=== PATIENT | female | born 1975 | race Caucasian/White ===

== ENCOUNTER 2017-05-24 10:24 | Inpatient (IN) | payer OTHER ==
[2017-05-24] MEDS ORDERED: OLANZapine DISINTEGR 10 MG TAB PO ONE (11:07)
[2017-05-24] MEDS ORDERED: LORazepam 1 MG TAB PO ONE (11:14)
[2017-05-24 12:31] LABS: % IMMATURE GRANULYOCYTES 0.3 % (0.0-1.1); ABSOLUTE IMMATURE GRANULOCYTES 0.03 10^3/uL (0.00-0.10); ADD DIFF? NO; ADD MORPH? NO; ADD SCAN? NO; ATYPICAL LYMPHOCYTE FLAG 0 (0-99); FRAGMENT RBC FLAG 0 (0-99); HEMATOCRIT 45.8 % (38.0-47.0); HEMOGLOBIN 15.4 g/dL (12.6-16.3); LEFT SHIFT FLG 0 (0-99); LIPEMIA HEMOLYSIS FLAG 80 (0-99); MEAN CELL HEMOGLOBIN 32.4 pg (27.9-34.1); MEAN CELL HEMOGLOBIN CONCENTR. 33.6 g/dL (32.4-36.7); MEAN CELL VOLUME 96.2 fL (81.5-99.8); MEAN PLATELET VOLUME 10.2 fL (8.7-11.7); PLATELET CLUMPS FLAG 0 (0-99); PLATELET COUNT 337 10^3/uL (150-400); RED BLOOD CELL COUNT 4.76 10^6/uL (4.18-5.33)
[2017-05-24 12:49] LABS: CALCIUM 10.4 mg/dL (8.5-10.4); CARBON DIOXIDE 25 mEq/l (22-31); CHLORIDE 103 mEq/L (97-110); CREATININE 0.9 mg/dL (0.6-1.0); ETHANOL SERUM < 10 mg/dL (0-10); GLOMERULAR FILTRATION RATE > 60; GLUCOSE 90 mg/dL (70-100); SODIUM 139 mEq/L (134-144)
--- NOTE | 2017-05-24 13:09 | CPEKG ---
Heart Rate: 92 RR Interval: 652 P-R Interval: 128 QRSD Interval: 82 QT Interval: 356 QTC Interval: 441 P [place]: 53 QRS [place]: 8 T Wave [place]: 29 EKG Severity - NORMAL ECG - EKG Impression: SINUS RHYTHM Electronically Signed By: Rashi Crowell 24-May-2017 13:50:04
[2017-05-24 13:11] LABS: ANION GAP 11 mEq/L (8-16); POTASSIUM 4.9 mEq/L (3.5-5.2)
--- NOTE | 2017-05-24 13:19 | EDPHY ---
H & P Stated Complaint: Here for med clear for admit to BEH/ECT - Personal History Current Tetanus Diphtheria and Acellular Pertussis (TDAP): Yes - Medical/Surgical History Hx Asthma: No Hx Chronic Respiratory Disease: No Hx Diabetes: No Hx Cardiac Disease: No Hx Renal Disease: No Hx Cirrhosis: No Hx Alcoholism: No Hx HIV/AIDS: No Hx Splenectomy or Spleen Trauma: No Other PMH: PS, bipolar - Social History Smoking Status: Former smoker Time Seen by Provider: 05/24/17 10:45 HPI/ROS: Chief complaint: Medical clearance for inpatient psychiatric care History of present illness: This is a 41-year-old female with a history of bipolar who sent to the emergency department for medical clearance to get inpatient psychiatric care. Patient has had worsening symptoms of her bipolar. Her doctor wants to pursue inpatient treatment with ECT. My evaluation denies suicidal ideation. She denies homicidal ideation. She denies illness or injury. Review of systems: A 10 point review of systems was obtained and other than described above was negative (Herb Rain) - Physical Exam Exam: General Appearance: Alert, extremely upset and crying. Eyes: Pupils equal and round no pallor or injection. ENT, Mouth: Mucous membranes moist. Respiratory: There are no retractions, lungs are clear to auscultation. Cardiovascular: Regular rate and rhythm. Gastrointestinal: Abdomen is soft and non tender, no masses, bowel sounds normal. Neurological: Alert. Strength and sensation intact and symmetrical Skin: Warm and dry, no rashes. Musculoskeletal: Neck is supple non tender. Extremities are symmetrical, full range of motion. Psychiatric: Patient is oriented X 3, there is no agitation. (Herb Rain) Constitutional: Initial Vital Signs Temperature (C) 36.7 C 05/24/17 10:25 Heart Rate 88 05/24/17 10:25 Respiratory Rate 18 05/24/17 10:25 Blood Pressure 126/88 H 05/24/17 10:25 O2 Sat (%) 96 05/24/17 10:25 O2 Delivery Mode Room Air Allergies/Adverse Reactions: No Known Allergies Allergy (Verified 05/24/17 10:29) Home Medications: Medication Instructions Recorded Acetaminophen [Tylenol 325mg (*)] 325 mg PO DAILY PRN 05/24/17 Ibuprofen [Motrin (*)] 200 mg PO DAILY PRN 05/24/17 Montelukast Sodium [Singulair 10 10 mg PO HS 05/24/17 mg (*)] OLANZapine [Zyprexa] 15 mg PO HS 05/24/17 QUEtiapine FUMARATE [Seroquel 300 mg PO HS 05/24/17 300mg (*)] Ziprasidone HCl [Geodon 40MG (*)] 160 mg PO HS 05/24/17 lamoTRIgine [LamICTAL 100 MG (*)] 300 mg PO HS 05/24/17 Medical Decision Making - Diagnostics EKG Interpretation: EKG: Complete interpretation has been separately recorded in the [facility] archive. Summary impression: Sinus rhythm, rate 92 (Rashi Crowell) ED Course/Re-evaluation: Patient seen in conjunction with my secondary supervising physician Dr. Wilver Crowell. Patient presents to the emergency department for medical clearance for inpatient psychiatric care with ECT. She is medically evaluated and cleared. She is transported to inpatient therapy by EMS. (Herb Rain) Differential Diagnosis: Included but not limited to substance abuse, depression, bipolar, schizophrenia (Herb Rain) Other Provider: Independent physician evaluation I evaluated and participated in the management of the patient. I also evaluated the patient independently. My co-signature indicates that I have reviewed this chart and I agree with the findings and plan of care as documented. My personal H&P findings include: The patient presents to the ED for medical clearance for ECT treatment. The patient has a history of bipolar mood disorder with psychotic features. She presents to the ED with complaints of ongoing symptoms and mild agitation with disorientation. Physical examination General Appearance: Alert, no distress Eyes: Pupils equal and round no pallor or injection ENT, Mouth: Mucous membranes moist Respiratory: There are no retractions, lungs are clear to auscultation Cardiovascular: Regular rate and rhythm Gastrointestinal: Abdomen is soft and nontender, no masses, bowel sounds normal Neurological: A&O, normal motor function, normal sensory exam, normal cranial nerves Skin: Warm and dry, no rashes Musculoskeletal: Neck is supple nontender Extremities: symmetrical, full range of motion Psychiatric: Patient does endorse symptoms of depression, denies suicidal ideation, slightly agitated ED course: The patient has been medically cleared for psychiatric evaluation. She has been accepted for inpatient psychiatric admission and additional ECT therapy by Dr. Gabriel Brar. She will be transferred to the inpatient unit at [facility]. I have filled out the EMTALA transfer form. (Rashi Crowell) - Data Points Laboratory Results: Laboratory Results 05/24/17 12:22 05/24/17 12:22 05/24/17 05/24/17 05/24/17 12:26 12:22 12:22 WBC RBC Hgb Hct MCV MCH MCHC RDW Plt Count MPV Neut % (Auto) Lymph % (Auto) Citrus % (Auto) Eos % (Auto) Baso % (Auto) Nucleat RBC Rel Count Absolute Neuts (auto) Absolute Lymphs (auto) Absolute Monos (auto) Absolute Eos (auto) Absolute Basos (auto) Absolute Nucleated RBC Immature Gran % Immature Gran # Sodium 139 mEq/L mEq/L (134-144) Potassium 4.9 mEq/L mEq/L (3.5-5.2) Chloride 103 mEq/L mEq/L (97-110) Carbon Dioxide 25 mEq/l mEq/l (22-31) Anion Gap 11 mEq/L mEq/L (8-16) BUN 15 mg/dL mg/dL (7-23) Creatinine 0.9 mg/dL mg/dL (0.6-1.0) Estimated GFR > 60 Glucose 90 mg/dL mg/dL (70-100) Calcium 10.4 mg/dL mg/dL (8.5-10.4) Beta HCG, Qual NEGATIVE Urine Opiates Screen NEGATIVE (NEGATIVE) Urine Barbiturates NEGATIVE (NEGATIVE) Ur Phencyclidine Scrn NEGATIVE (NEGATIVE) Ur Amphetamine Screen NEGATIVE (NEGATIVE) U Benzodiazepines Scrn NEGATIVE (NEGATIVE) Urine Cocaine Screen NEGATIVE (NEGATIVE) U Marijuana (THC) Screen NEGATIVE (NEGATIVE) Ethyl Alcohol < 10 mg/dL mg/dL (0-10) 05/24/17 12:22 WBC 9.76 10^3/uL H 10^3/uL (3.80-9.50) RBC 4.76 10^6/uL 10^6/uL (4.18-5.33) Hgb 15.4 g/dL g/dL (12.6-16.3) Hct 45.8 % % (38.0-47.0) MCV 96.2 fL fL (81.5-99.8) MCH 32.4 pg pg (27.9-34.1) MCHC 33.6 g/dL g/dL (32.4-36.7) RDW 13.0 % % (11.5-15.2) Plt Count 337 10^3/uL 10^3/uL (150-400) MPV 10.2 fL fL (8.7-11.7) Neut % (Auto) 77.0 % H % (39.3-74.2) Lymph % (Auto) 16.4 % % (15.0-45.0) Citrus % (Auto) 5.1 % % (4.5-13.0) Eos % (Auto) 0.6 % % (0.6-7.6) Baso % (Auto) 0.6 % % (0.3-1.7) Nucleat RBC Rel Count 0.0 % % (0.0-0.2) Absolute Neuts (auto) 7.51 10^3/uL H 10^3/uL (1.70-6.50) Absolute Lymphs (auto) 1.60 10^3/uL 10^3/uL (1.00-3.00) Absolute Monos (auto) 0.50 10^3/uL 10^3/uL (0.30-0.80) Absolute Eos (auto) 0.06 10^3/uL 10^3/uL (0.03-0.40) Absolute Basos (auto) 0.06 10^3/uL 10^3/uL (0.02-0.10) Absolute Nucleated RBC 0.00 10^3/uL 10^3/uL (0-0.01) Immature Gran % 0.3 % % (0.0-1.1) Immature Gran # 0.03 10^3/uL 10^3/uL (0.00-0.10) Sodium Potassium Chloride Carbon Dioxide Anion Gap BUN Creatinine Estimated GFR Glucose Calcium Beta HCG, Qual Urine Opiates Screen Urine Barbiturates Ur Phencyclidine Scrn Ur Amphetamine Screen U Benzodiazepines Scrn Urine Cocaine Screen U Marijuana (THC) Screen Ethyl Alcohol Medications Given: Discontinued Medications Lorazepam (Ativan) 1 mg PO EDNOW ONE Stop: 05/24/17 11:15 Last Admin: 05/24/17 11:23 Dose: 1 mg Olanzapine (Zyprexa Zydis) 10 mg PO EDNOW ONE Stop: 05/24/17 11:08 Last Admin: 05/24/17 11:23 Dose: 10 mg Departure - Departure Disposition: [facility] IP Clinical Impression: Bipolar 1 disorder, mixed, severe Condition: Fair Referrals: GUILHERME ROSS [Primary Care Provider] - As per Instructions
[2017-05-24] MEDS: lamoTRIgine 100 MG TAB PO SCH (18:14)
[2017-05-24] MEDS: MONTELUKAST SODIUM 10 MG TAB PO SCH (19:30)
[2017-05-24] MEDS: LURASIDONE HCL 80 MG TAB PO SCH ×2 (19:30→19:40)
[2017-05-24] MEDS: OLANZapine 10 MG TAB PO SCH (19:31)
[2017-05-24] MEDS: QUEtiapine FUMARATE 300 MG TAB PO SCH (19:31)
--- NOTE | 2017-05-24 20:27 | BAPA ---
[f rep st] ADMISSION PSYCHIATRIC ASSESSMENT DATE OF SERVICE: 05/24/2017 CHIEF COMPLAINT: "I just feel safer in the hospital." HISTORY OF PRESENT ILLNESS: Patient is a 41-year-old female, well known to me from previous inpatient admissions as well as ongoing outpatient care. She had presented to my office and returned after having been out of ECT for about a year. She had had 2 acute courses and a rather protracted maintenance course of ECT due to recurrent bipolar depression with psychosis. Approximately a year ago, she completed and was participating in outpatient medication management with Dr. Banks at the [facility]. She had apparently done well, was caring for her daughter, functioning normally, and had no recurrence of her paranoid psychosis. About 2 weeks prior to returning for ECT on 04/18/17, she began to demonstrate some evidence of paranoia. Her and Dr. Banks believed that she was in a mixed state, and we underwent an abbreviated acute course of ECT. She received 4 treatments in the course of 7 days and then had 4 maintenance treatments after that. She did seem to stabilize, but this did not last and her reported that she was declining again. They returned to see Dr. Banks, who restarted her on Zyprexa, which has always been the best antimanic medication for her, though she was noticing no benefit. She has become paranoid and unable to leave her home, afraid that others are pursuing her and trying to harm her, and that others are talking about her and sharing her medical information. She believes she is unsafe to travel to her daughter's school and wanted to return to the hospital, where she would feel safer and able to participate in care. Today, she is tearful and appears frightened. She describes herself as "scared. " She repeats the fears of others monitoring her activities and states that she is glad she is in the hospital. She is agreeable to restarting a more traditional acute course of ECT. PAST PSYCHIATRIC HISTORY: Significant for the 2 previous psychiatric hospitalizations here, and then in 2005 in [place]. She is currently followed by Dr. Banks at the [facility]. Other history is as above. She has typically maintained on multiple antipsychotics, and efforts in the past repeatedly to decrease to a single agent have caused relapse. Zyprexa has been the most effective for her, though it has caused significant weight gain, and she did not want to restart that, if at all avoidable. ALLERGIES: No known medical allergies. CURRENT MEDICATIONS: Include Lamictal 300 mg p.o. q.h.s., Zyprexa 15 mg q.h.s. , Seroquel 300 mg p.o. q.h.s., and Geodon 160 mg p.o. q.h.s., also Singulair 10 mg p.o. q.h.s. PAST MEDICAL HISTORY: Significant for asthma and obesity. No other acute or chronic medical issues. SOCIAL HISTORY: Patient is . Her is her primary support. They have a 10-year-old, adopted daughter who has had some significant behavioral issues over time; the patient is the primary caregiver for her. She has a BA from the [employer] in history and additional teaching certificates. She also obtained a master's degree in special education. She has not worked outside of the home since June of 2013, however. Her mother and stepfather live in [place] and are her other supports. She has no significant substance abuse history. MENTAL STATUS EXAMINATION: Reveals a well-groomed, appropriately dressed female. She is sitting on her bed with her knees pulled to her chest and appears anxious. She had been crying and is dabbing her eyes. She otherwise smiles, interacts appropriately with me, stating that she is glad I am there and that she is glad she is in the hospital where she will be kept safe. Her affect is dysphoric, anxious, tearful, though stable and appropriate. Her mood is described as "bad." Her thought processes are linear and goal directed, though somewhat abbreviated. Her thought content reveals mention of her paranoid delusions, though she denies any auditory hallucinations at this time. She is alert and oriented to person, place, time, and situation, and her sensorium is clear. Her intellect is above average, as evidenced by her educational and occupational history, fund of knowledge, and vocabulary. She denies any thoughts of suicide, homicide, or violence at this time. Her insight and judgment appear to be good. ADMISSION LABORATORY: CBC shows the white count slightly up at 9.76, with the neutrophil percentage slightly up at 77. Serum chemistries are normal. Beta hCG is negative, and urine drug screen is negative for all substances. EKG done today in the emergency department reveals normal sinus rhythm with a QTc of 441. IMPRESSION: Bipolar 1 disorder, most recent episode mixed, severe, with psychosis. Chronic illness. Recurrent illness. Parenting stress. Obesity. Patient is a pleasant, 41-year-old female who is a long-time patient of ours, treated for severe bipolar disease with recurrent psychosis. She has slipped more than she had recently but has not gotten to her lowest point. We will admit her to the hospital at this time, continue on the Zyprexa but may attempt to decrease at least one of her other antipsychotics, as I believe 3 atypical agents is excessive at this time. We will arrange for an acute course of ECT after approval through Medicaid and hope to see a rapid reversal. Estimated length of stay is 7-10 days. /[id number]/MODL MTDD
[2017-05-25] MEDS: LURASIDONE HCL 80 MG TAB PO SCH (10:02)
[2017-05-25] MEDS ORDERED: LIDOCAINE 2% 5 ML SDV ID ONE (11:00)
[2017-05-25] MEDS ORDERED: CITRIC ACID/SODIUM CITRATE 30 ML UDCUP PO ONE (11:00)
[2017-05-25] MEDS ORDERED: NS 1,000 ML IV ONE (11:00)
[2017-05-25] MEDS ORDERED: THEOPHYLLINE ORAL SOLUTION 80 MG/15 ML UDCUP PO ONE ×2 (11:00)
[2017-05-25] MEDS ORDERED: ONDANSETRON DISINTEGRATING 4 MG TAB PO ONE (11:00)
--- NOTE | 2017-05-25 14:14 | SOAPPROG ---
SOAP Progress Note Assessment/Plan: Assessment: Plan: 05/25/17 14:15 Psychotic bipolar depression. Will continued current meds, tapering and d/c' ing SQL and proceed with acute course ECT. Subjective: Pt seen, discussed with staff. Reports feeling "really sad and scared." Remains paranoid believing others are trying to harm her or are monitoring her. Guarded about this. State, "I just can't quit crying." Underwent bilateral ECT today without complication. Objective: Vital Signs Temp Pulse Resp BP Pulse Ox 36.5 C 91 12 107/72 97 05/25/17 06:00 05/25/17 06:00 05/25/17 06:00 05/25/17 06:00 05/25/17 06:00 MSE; Tearful, guarded. Affect is o/w constricted, stable, approp. Mood is "really sad." TP generally linear. TC reveals paranoid delusions. Denies AH' s. - Time Spent With Patient Time Spent With Patient: 35" ICD10 Worksheet Patient Problems: Problems Problem Status Onset Bipolar 1 disorder, mixed, severe Acute
[2017-05-25] MEDS: ZIPRASIDONE HCL 40 MG CAP PO SCH ×2 (15:34→19:23)
[2017-05-25] MEDS: QUEtiapine FUMARATE 300 MG TAB PO SCH (19:22)
[2017-05-25] MEDS: OLANZapine 10 MG TAB PO SCH (19:23)
[2017-05-25] MEDS: MONTELUKAST SODIUM 10 MG TAB PO SCH (19:23)
[2017-05-25] MEDS: lamoTRIgine 100 MG TAB PO SCH (21:07)
[2017-05-26] MEDS: ACETAMINOPHEN 325 MG TAB PO PRN (07:30)
[2017-05-26] MEDS: ZIPRASIDONE HCL 40 MG CAP PO SCH ×3 (07:30→17:48)
[2017-05-26] MEDS: IBUPROFEN 200 MG TAB PO PRN (08:20)
--- NOTE | 2017-05-26 12:17 | SOAPPROG ---
BRITTANY Progress Note Assessment/Plan: Assessment: Plan: 05/25/17 14:15 Psychotic bipolar depression. Will continued current meds, tapering and d/c' ing SQL and proceed with acute course ECT. 05/26/17 12:18 Improved with ECT. Will proceed with d/c'ing Seroquel and starting Topomax to offset weight gain with Zyprexa and provide additional calming. The risks, benefits and alternatives of this are reviewed with pt and she agrees. Subjective: Pt seen, discussed with staff. Reports feeling "better." Reports today that she was having AH's of people mumbling in the ceiling at home [employer] and also more IOR's. These included ascribing meaning to license plate numbers and colors. She ordered groceries to be delivered by [employer] and believed "they were trying to torment me" by sending multicolored sponges instead of the normal yellow one she usually gets. She also believed other people in public were sending her messages and trying to intimidate her by the color of clothes they were wearing. Objective: Vital Signs Temp Pulse Resp BP Pulse Ox 36.5 C 100 16 100/61 98 05/26/17 06:00 05/26/17 06:00 05/26/17 06:00 05/26/17 06:00 05/26/17 06:00 MSE: Calm, coop. Affect is brighter, less tearful. Mood is "better." TP linear. TC reveals continued paranoia and IOR's. Denies current AH's. - Time Spent With Patient Time Spent With Patient: 25" ICD10 Worksheet Patient Problems: Problems Problem Status Onset Bipolar 1 disorder, mixed, severe Acute
[2017-05-26] MEDS: TOPIRAMATE 25 MG TAB PO SCH (14:06)
[2017-05-26] MEDS: lamoTRIgine 100 MG TAB PO SCH (20:56)
[2017-05-26] MEDS: OLANZapine 10 MG TAB PO SCH (20:56)
[2017-05-26] MEDS: MONTELUKAST SODIUM 10 MG TAB PO SCH (20:57)
--- NOTE | 2017-05-26 23:20 | PDGENHP ---
History and Physical History and Physical: Reason for Consultation: Hospital medical clearance Chief complaint: hearing mumbling voices History of present illness: Patient is a 41-year-old female with history of bipolar disorder with psychotic features who presented to the ED because she was hearing mumbling voices coming from the ceiling. She told her and they both agreed that it seems safer for her to be admitted. She is also extremely sensitive to colors. She finds they are tremely bright to her. She finds herself wondering and analyzing why people are wearing certain colors, as if they are trying to send her a message. She finds this exhausting. She feels like she is in a manic episode. She has done electroconvulsive therapy with her psychiatrist. She is not currently taking an antipsychotic at home. Past medical history: Bipolar disorder., Past surgical history: Denies. Medications: Singulair, Zyprexa, Ziprasidone, lamotrigine. Allergies: NKDA. Social history: , lives w/ . Former smoker. Denies EtOH or drug use. Family history: bipolar disorder. Review of systems: 10 point review of systems was conducted and is negative except per HPI Physical exam: Vitals: Reviewed General: The patient is a female who is alert and in no acute distress. HEENT: normocephalic, extraocular movements intact, conjunctivae clear, no lesions on face. Mucous membranes moist. Neck: trachea midline, no visible masses, no external lesions. Abd: soft and nondistended. Musculoskeletal: Normal gait. Neuro: cranial nerves II XII grossly intact. Intact gross motor and sensory function. Psych: appropriate mood/affect. Skin: No pallor. Labs: betaHCG - negative. BMP unremarkable. CBC unremarkable. Utox - negative. EtOH negative. Impression and plan: Bipolar disorder w/ acute manic episode and psychotic features: Agree w/ admission to inpatient behavioral unit for close monitoring and med mgmt. Pt is medically clear of other medical conditions. []
[2017-05-27] MEDS: ZIPRASIDONE HCL 40 MG CAP PO SCH ×2 (07:55→17:19)
[2017-05-27] MEDS: TOPIRAMATE 25 MG TAB PO SCH (07:55)
[2017-05-27] MEDS: MONTELUKAST SODIUM 10 MG TAB PO SCH (19:18)
[2017-05-27] MEDS: OLANZapine 10 MG TAB PO SCH (19:18)
[2017-05-27] MEDS: lamoTRIgine 100 MG TAB PO SCH (19:24)
--- NOTE | 2017-05-27 19:56 | SOAPPROG ---
SORICHARD Progress Note Assessment/Plan: Assessment: Plan: 05/25/17 14:15 Psychotic bipolar depression. Will continued current meds, tapering and d/c' ing SQL and proceed with acute course ECT. 05/26/17 12:18 Improved with ECT. Will proceed with d/c'ing Seroquel and starting Topomax to offset weight gain with Zyprexa and provide additional calming. The risks, benefits and alternatives of this are reviewed with pt and she agrees. 05/27/17 19:57 Remains tenuous. Psychosis slightly improved but remains intrusive. She would almost certainly decline if she went home. Will [facility] inc: continued inpatient acute course ECT. Subjective: Pt seen, discussed with staff. Reports feeling "confused." States she can't decide if she should be in the hospital or go home. She is afraid she will be a burden to her family if she goes home. I reassure her that we want her to be in the hospital at least through this week to begin her acute course of ECT. She voices an understanding of this but later asks the RN the same questions. She reports some ongoing parnoia and IOR's, especially in re: colors. She also has heard some mumbling voices. Objective: Vital Signs Temp Pulse Resp BP Pulse Ox 36.8 C 95 14 115/67 96 05/27/17 06:00 05/27/17 06:00 05/27/17 06:00 05/27/17 06:00 05/27/17 06:00 MSE: Moderately anxious, guarded. Sitting in bed in familiar position. States she is "a little afraid" to leave her room. Her affect is constricted, anxious, dysphoric, tearful at times. Mood is "not too good." TP generally linear. TC reveals psychosis as in HPI. - Time Spent With Patient Time Spent With Patient: 25" ICD10 Worksheet Patient Problems: Problems Problem Status Onset Bipolar 1 disorder, mixed, severe Acute
[2017-05-28] MEDS ORDERED: ONDANSETRON DISINTEGRATING 4 MG TAB PO ONE (07:06)
[2017-05-28] MEDS ORDERED: LIDOCAINE 2% 5 ML SDV ID ONE (07:06)
[2017-05-28] MEDS ORDERED: THEOPHYLLINE ORAL SOLUTION 80 MG/15 ML UDCUP PO ONE (07:06)
[2017-05-28] MEDS ORDERED: NS 1,000 ML IV ONE (07:06)
[2017-05-28] MEDS ORDERED: CITRIC ACID/SODIUM CITRATE 30 ML UDCUP PO ONE (07:06)
[2017-05-28] MEDS: ACETAMINOPHEN 325 MG TAB PO PRN (09:36)
[2017-05-28] MEDS: IBUPROFEN 200 MG TAB PO PRN (09:36)
[2017-05-28] MEDS: ZIPRASIDONE HCL 40 MG CAP PO SCH ×2 (10:39→18:51)
[2017-05-28] MEDS: TOPIRAMATE 25 MG TAB PO SCH (10:39)
--- NOTE | 2017-05-28 10:53 | SOAPPROG ---
SORICHARD Progress Note Assessment/Plan: Assessment: Plan: 05/25/17 14:15 Psychotic bipolar depression. Will continued current meds, tapering and d/c' ing SQL and proceed with acute course ECT. 05/26/17 12:18 Improved with ECT. Will proceed with d/c'ing Seroquel and starting Topomax to offset weight gain with Zyprexa and provide additional calming. The risks, benefits and alternatives of this are reviewed with pt and she agrees. 05/27/17 19:57 Remains tenuous. Psychosis slightly improved but remains intrusive. She would almost certainly decline if she went home. Will [facility]: continued inpatient acute course ECT. 05/28/17 10:53 Some improvement though remains psychotically depressed. Tolerating ECT and med changes well. Will CCM. Subjective: Pt seen, discussed with staff. Reports feeling calmer today, though continues to present as anxious and guarded. She slept adequately last night and states she was not bothered by voices. She underwent bilateral ECT without complication this morning. Tolerating med changes well. Continues to get confused about d/c plan. I reiterated the plan to stay in the hospital at least through this week and possible next for acute course ECT depending on clinical response. Objective: Vital Signs Temp Pulse Resp BP Pulse Ox 36.1 C 111 H 14 120/81 H 97 05/28/17 09:12 05/28/17 06:00 05/28/17 06:00 05/28/17 06:00 05/28/17 06:00 MSE: Moderately anxious, guarded, coop. Affect is constricted, anxious, dysphoric. Mood is "OK." TP linear, though abbreviated. TC reveals continued paranoid thoughts of others working against her and of her being "unsafe." She also mentions continued IOR's. Denies current AH's. - Time Spent With Patient Time Spent With Patient: 35" ICD10 Worksheet Patient Problems: Problems Problem Status Onset Bipolar 1 disorder, mixed, severe Acute
[2017-05-28] MEDS: MONTELUKAST SODIUM 10 MG TAB PO SCH (18:50)
[2017-05-28] MEDS: lamoTRIgine 100 MG TAB PO SCH (18:50)
[2017-05-28] MEDS: OLANZapine 10 MG TAB PO SCH (18:51)
--- NOTE | 2017-05-29 08:47 | SOAPPROG ---
SOAP Progress Note Assessment/Plan: Assessment: 1. Bipolar, Depression, Severe Receiving ECT. Improving. Plan: Continue ECT. Address when to do ECT from home with team. 05/29/17 10:23 Subjective: "I want to do the rest of my ECT from home." "I'm fine." Reports her mood is better. Good sleep. Sleep record shows 9.5 hours last night. Energy, concentration, appetite all good. Not participating in groups, isolating in room. Says this is secondary to worries about other patients. Objective: Vital Signs Temp Pulse Resp BP Pulse Ox 36.4 C 83 16 107/59 L 94 05/29/17 06:00 05/29/17 06:00 05/29/17 06:00 05/29/17 06:00 05/29/17 06:00 Medications Generic Name Dose Route Start Last Admin Trade Name Freq PRN Reason Stop Dose Admin Montelukast Sodium 10 mg 05/24/17 21:00 05/28/17 18:50 Singulair PO 11/20/17 20:59 10 mg HS HENOK Lamotrigine 300 mg 05/24/17 21:00 05/28/17 18:50 Lamictal PO 11/20/17 20:59 300 mg HS HENOK Olanzapine 15 mg 05/24/17 21:00 05/28/17 18:51 Olanzapine PO 11/20/17 20:59 15 mg HS HENOK Topiramate 25 mg 05/26/17 12:30 05/29/17 09:21 Topamax PO 11/22/17 12:29 25 mg DAILY HENOK Ziprasidone 80 mg 05/25/17 12:15 05/29/17 09:20 Geodon PO 11/21/17 12:14 80 mg BIDMEAL HENOK MSE Awake, alert, good grooming, clean and neat in dress. Speech normal in rate and tone. Mood and affect congruent, but reduced range of affect Linear thought processes, no abnormal perceptions Limited insight and judgment ICD10 Worksheet Patient Problems: Problems Problem Status Onset Bipolar 1 disorder, mixed, severe Acute
[2017-05-29] MEDS: ZIPRASIDONE HCL 40 MG CAP PO SCH ×2 (09:20→19:39)
[2017-05-29] MEDS: TOPIRAMATE 25 MG TAB PO SCH (09:21)
[2017-05-29] MEDS: lamoTRIgine 100 MG TAB PO SCH (17:48)
[2017-05-29] MEDS: MONTELUKAST SODIUM 10 MG TAB PO SCH (19:39)
[2017-05-29] MEDS: OLANZapine 10 MG TAB PO SCH (19:39)
[2017-05-30] MEDS ORDERED: THEOPHYLLINE ORAL SOLUTION 80 MG/15 ML UDCUP PO ONE (05:30)
[2017-05-30] MEDS ORDERED: LIDOCAINE 2% 5 ML SDV ID ONE (05:30)
[2017-05-30] MEDS ORDERED: NS 1,000 ML IV ONE (05:30)
[2017-05-30] MEDS ORDERED: ONDANSETRON DISINTEGRATING 4 MG TAB PO ONE (05:30)
[2017-05-30] MEDS ORDERED: CITRIC ACID/SODIUM CITRATE 30 ML UDCUP PO ONE (05:30)
[2017-05-30] MEDS: TOPIRAMATE 25 MG TAB PO SCH (09:16)
[2017-05-30] MEDS: ZIPRASIDONE HCL 40 MG CAP PO SCH (09:16)
[2017-05-30] MEDS ORDERED: FLU VACC QS 2017-18 (3YR+)/PF 0.5 ML SYR (FLUARIX QUAD) IM ONE (11:00)
[2017-05-30 11:11] VITALS: BP 119/79; PULSE 84; RESP 14; TEMP 94.3; O2SAT 96
--- NOTE | 2017-05-30 16:05 | BDS ---
[f rep st] BEHAVIORAL HEALTH DISCHARGE SUMMARY REASON FOR ADMISSION: Patient is a 41-year-old, female, admitted from the emergency depart ment after she presented with her family due to increasing psychotic symptoms. She began having elly tory hallucinations of voices in the ceiling of her home and having ideas of reference of license jerri te numbers on cars and colors in people's clothing and elsewhere that she believes she was receiving coded messages that were there to torment her. This was consistent with previous symptoms she has ex perienced as she was beginning to worsen with psychotic depression. She had received an abbreviated course of ECT to help stave this off approximately 2 weeks prior to this that was unsuccessful and it was felt that further acute course ECT was warranted. A full description of the events preceding ad mission can be found in her admission history dated 05/15/2017. ADMITTING DIAGNOSES: Bipolar 1 disorder, most recent episode mixed, severe, with psychosis. Chronic illness recurrent illness, parenting stress, obesity. ADMITTING PHYSICAL EXAMINATION: Performed by Perla Villanueva showed no acute physical findings. ADMISSION LABORATORY: CBC shows a white count up at 9.76 with neutrophil percentage 77,000. Serum c hemistries were normal. Beta hCG was negative. Urine drug screen was negative for all substances. Alcohol is less than detectable. HOSPITAL COURSE: Patient was admitted to the [facility] inpatient unit on a voluntary basis. She was pleasant, cooperative and engaged in all evaluations. She was guarded, however very anxious and tearful, clearly still paranoid. She described the difficulty in trying to interpret all the stimuli and believed that people were actually trying to torment her and were talking about her and monitoring her behaviors. These are very familiar symptoms for her psychotic depression and she stated she was glad to be in the hospital where she felt safe and could pursue ECT treatment in peace . She also stated that she was glad to be out of the home environment where she would not have any n egative influence on her family or her daughter. She underwent initial ECT treatment on 05/25/2017 and then again on 05/28 and 05/30/2017. These carmen tments went well and she tolerated them with no complications. She improved significantly and the ps ychosis abated largely. We did make some medication adjustments including increasing her Zyprexa to 15 mg h.s., and discontinuing her Seroquel. She has requested any kind of medication that might help mitigate weight gain from the Zyprexa and I discussed with her the potential use of Topamax. This w as started at 25 mg daily and increased ultimately to 25 mg twice daily at discharge. She tolerated this well with no side effects. Patient's hospitalization was uncomplicated. She improved significantly through her stay especially in regards to the psychosis and to a lesser extent, with her mood. At the time of discharge, she requ ested to go home stating that she felt she would be more comfortable at home due to the escalated [facility] with multiple psychotic patients in the hospital. She felt that she could tolerate the stresses at home and her mother was going to be staying with her for at least a week and her also stat ed that he could provide supports. Patient was confident that this would be adequate for her to safe ly return home. She was agreeable to continuing an acute course ECT as an outpatient. CONDITION ON DISCHARGE: Stable. Her affect was brighter. She was expressing less paranoia and less pressing and intrusive ideas of reference. She was describing no auditory hallucinations. She was describing no thoughts of suicide. DISCHARGE MEDICATIONS: Lamictal 300 mg p.o. at bedtime, Singulair 10 mg p.o. at bedtime, ibuprofen 2 00 mg as needed daily, Geodon 80 mg twice daily, Zyprexa 15 mg at bedtime, Tylenol 325 mg as needed d aily, Topamax 25 mg twice daily. DISCHARGE DIAGNOSES: Bipolar 1 disorder, most recent episode, mixed, severe, with psychosis. Chroni c illness, recurrent illness, parenting stress, obesity. DISPOSITION: Patient left the hospital with her mother to return to her home. FOLLOWUP: With her current outpatient providers and then myself on Sunday the for ongoing acute course ECT. LEGAL COURSE: Patient was voluntary throughout her stay. /[id number]/MODL
== END 2017-05-30 12:57 | disposition home or self-care (01) | DRG 885 ==
LOC: BBEH 15:02
PROVIDERS: ADMIT Psychiatry & Neurology Psychiatry; ATTEND Psychiatry & Neurology Psychiatry
PROC: GZB4ZZZ Other Electroconvulsive Therapy (ICD-10-PCS; principal; 2017-05-26)
DX: F31.64 Bipolar disorder, current episode mixed, severe, with psychotic features (principal); E66.9 Obesity, unspecified; Z68.32 Body mass index [BMI] 32.0-32.9, adult; Z87.891 Personal history of nicotine dependence
CPT/HCPCS: 80305; G0008; G0480